=== PATIENT | female | born 1985 | race African-American/Black ===

== ENCOUNTER 2016-09-03 16:49 | Emergency (ER) | payer OTHER ==
[~2016-09-03] VITALS: Ht 165.1 cm; Wt 63.5 kg
[2016-09-03 16:55] VITALS: BP 127/75
--- NOTE | 2016-09-03 18:10 | NUR ---
Pt ambulated to bed 7 at this time.
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
--- NOTE | 2016-09-03 18:24 | NUR ---
Patient being evaluated by physician at bedside.
[2016-09-03] MEDS ORDERED: NACL 0.9% 1,000 ML IV SCH (18:25)
[2016-09-03] MEDS ORDERED: ONDANSETRON 4 MG/2 ML VIAL IVP ONE (18:25)
[2016-09-03] MEDS ORDERED: FAMOTIDINE 20 MG/2 ML VIAL IVP ONE (18:25)
--- NOTE | 2016-09-03 19:20 | NUR ---
assist pt to BRP. for UA.
--- NOTE | 2016-09-03 19:31 | NUR ---
Dr. Renee evaluating patient at bedside.
--- NOTE | 2016-09-03 19:39 | NUR ---
Pt report given to Maile MEEKS. Transfer of care at this time.
--- NOTE | 2016-09-03 19:40 | NUR ---
Assumed care of pt. Cond without change. no distress noted.
--- NOTE | 2016-09-03 19:45 | NUR ---
asssist back to bed. IV flushed.
--- NOTE | 2016-09-03 22:15 | NUR ---
IV removed, catheter intact and site benign. Applied folded 4x4 gauze and tape to stop bleeding.
[2016-09-03 22:18] VITALS: BP 114/55
--- NOTE | 2016-09-03 22:20 | NUR ---
Patient discharged with v/s stable. Written and verbal after care instructions given and explained. Patient alert, oriented and verbalized understanding of instructions. Ambulatory with steady gait. All questions addressed prior to discharge. ID band removed. Patient advised to follow up with PMD. Rx of ZOFRAN ODT PO. TRAMADOL 50MG PO given. Patient educated on indication of medication including possible reaction and side effects. Opportunity to ask questions provided and answered.
== END 2016-09-03 22:20 | disposition home or self-care (01) ==
LOC: MED 16:49
DX: F10.129 Alcohol abuse with intoxication, unspecified (principal); R10.32 Left lower quadrant pain; D64.9 Anemia, unspecified
CPT/HCPCS: 36415; 80053; 80305; 81001; 81025; 82150; 83690; 85025; 87086; 96361; 96374; 96375; 99284; G0482; J2405; J3490; J7030

== ENCOUNTER 2019-01-19 14:38 | Emergency (ER) | payer OTHER ==
[~2019-01-19] VITALS: Ht 165.1 cm; Wt 64.0 kg
[2019-01-19 14:56] VITALS: BP 118/68
--- NOTE | 2019-01-19 15:09 | NUR ---
33 Y FEMALE BIB SELF C/O HEADACHE/MIGRAINE. PT GOT HAIR PRODUCT ON RT EYE LAST EVENING, PT UNBLE TO KEEP RT EYE OPEN. PT TRIED TO FLUSH EYE WITH WATER AND OTC EYE DROPS, NO RELIEF. +REDNESS IN RT EYE WHEN EYE OPENED. PT LAYING IN BED WITH LIGHTS OFF. PAIN 7/10. VSS AT THIS TIME. PT AA0X4. BED IS DOWN, LOCKED, BED RAIL X 1, ERMD TO SEE PT. MED HX: NONE
--- NOTE | 2019-01-19 16:11 | NUR ---
DR LARES AT BEDSIDE
[2019-01-19] MEDS ORDERED: TETRACAINE HCL/PF 0.5% OPTH 4 ML BTL OP ONE (16:15)
--- NOTE | 2019-01-19 16:25 | NUR ---
TOOK PATIENT TO EYE IRRIGATION STATION. UNABLE TO IRRIGATE AT THIS TIME DO TO EXRUCIATING PAIN 10/10. PHYSICIAN ARNAUD MADE AWARE AND PATIENT BROUGHT BACK TO ER ROOM 09.
[2019-01-19] MEDS ORDERED: MORPHINE SULFATE 4 MG/ML SYR IM ONE (16:35)
[2019-01-19] MEDS ORDERED: PROMETHAZINE 25 MG/ML VIAL IM ONE (16:35)
--- NOTE | 2019-01-19 16:48 | NUR ---
MORPHINE AND PHENERGEN ADMINISTERED IM L DELTIOD. PTS C/O PAIN 05/01
[2019-01-19] MEDS ORDERED: TOBRAMYCIN 0.3% OPTH OINT 3.5 GM TUBE OP SCH (18:00)
--- NOTE | 2019-01-19 18:04 | NUR ---
VSS AT THIS TIME. PT AA0X4. C/O 10/10 PAIN EVEN AFTER MORPHINE ADMINISTERED. PER DR LARES, HE WILL PUT ORDER IN FOR OPTHALMIC OINTMENT AND THEN COVER INJURED EYE WITH EYE PATCH.
--- NOTE | 2019-01-19 18:11 | NUR ---
CALLED [facility] FOR ORDERED EYE OINTMENT
[2019-01-19] MEDS ORDERED: ERYTHROMYCIN 0.5% OPTH OINT 1 GM TUBE OP ONE (18:50)
[2019-01-19] MEDS ORDERED: ERYTHROMYCIN 0.5% OPTH OINT 1 GM TUBE ONE (18:57)
[2019-01-19] MEDS ORDERED: ERYTHROMYCIN 0.5% OPTH OINT 1 GM TUBE OP STA (19:09)
--- NOTE | 2019-01-19 19:15 | NUR ---
ERYTHROMYCIN OPHTHALMIC OINTMENT ADMINISTERED TOPICALLY TO PTS INJURED EYE. EYE PATCH PLACED AND TAPED WITH PAPER TAPE.
[2019-01-19 19:24] VITALS: BP 120/67
--- NOTE | 2019-01-19 19:24 | NUR ---
Patient discharged with v/s stable. Written and verbal after care instructions given and explained. Patient alert, oriented and verbalized understanding of instructions. Ambulatory with steady gait. All questions addressed prior to discharge. ID band removed. Patient advised to follow up with PMD. Rx of NORCO AND TOBRAMYCIN SOLUTION given. Patient educated on indication of medication including possible reaction and side effects. Opportunity to ask questions provided and answered. PT INSTRUCTED NOT TO DRIVE AFTER TAKING NORCO. PT GIVEN EXCUSE FOR WORK THROUGH January.
== END 2019-01-19 19:24 | disposition home or self-care (01) ==
LOC: MED 14:38
DX: H10.211 Acute toxic conjunctivitis, right eye (principal); T49.4X5A Adverse effect of keratolytics, keratoplastics, and other hair treatment drugs and preparations, initial encounter; Y92.89 Other specified places as the place of occurrence of the external cause
CPT/HCPCS: 96372; 99283; J2270; J2550